=== PATIENT | female | born 1965 | race Caucasian/White ===

== ENCOUNTER 2021-10-11 13:17 | Outpatient (CLI) | payer MEDICARE, SELFPAY ==
--- NOTE | ~2021-10-11 | XR_ITS ---
XR sacrum coccyx min 2V DATE: 10/11/2021 13:33 INDICATION: Fitting and adjustment of neural pacemaker TECHNIQUE: AP, angled AP and lateral views COMPARISON: 02/02/2017 sacrum and coccyx FINDINGS: Generator device overlies the right iliac wing, with electrode extending posteroanteriorly through the right S3 neural foramen. No sacral or coccygeal fracture or bone destruction. The pubic symphysis and sacroiliac joints are in tact. Hip joint spaces are symmetric and well preserved. IMPRESSION: Right S3 sacral neural lead Reviewed, dictated and finalized at location A. R CAR ATTENDANT IMPRESSION: Right S3 sacral neural lead
== END 2021-10-11 13:18 | disposition home or self-care (01) ==
LOC: ANHIMG 13:20
PROVIDERS: PCP Family Medicine; Visit Provider Urology
DX: Z46.2 Encounter for fitting and adjustment of other devices related to nervous system and special senses (principal)
CPT/HCPCS: 72220